=== PATIENT | male | born 1955 | race Caucasian/White ===

== ENCOUNTER 2016-08-03 05:47 | Day surgery (SDC) | payer OTHER ==
[2016-08-03] VITALS (11 sets, daily range): BP systolic 117–153; BP diastolic 73–91; PULSE 64–91; RESP 14–18; O2SAT 93–97
[~2016-08-03] VITALS: Ht 175.3 cm; Wt 89.7 kg
[~2016-08-03 05:47] MED LIST: ALFU10TA11 PO; AMIT10TA6 PO; CHOL200025 PO; FINA5TAB9 PO; FLUT16SP NS; KEN25CR EXT; KRIL500C PO; Lactated Ringer's 1,000 ML IV SCH; OMEP20CA11 PO; SALM1CAP4 PO; SIMV40TA5 PO; TRIA15OI9 TP; UBID100C16 PO
[2016-08-03] MEDS ORDERED: EPHEDrine/NS 5 mg/mL 5 mL Syringe ONE (05:48)
[2016-08-03] MEDS ORDERED: Ondansetron 2 mg/mL 2 mL Inj ONE (05:48)
[2016-08-03] MEDS ORDERED: Propofol 10,000 mCg/mL 20 mL Inj ONE (05:48)
[2016-08-03] MEDS ORDERED: fentaNYL-PF 50 mCg/mL 2 mL Inj ONE (05:48)
[2016-08-03] MEDS: Levofloxacin 500 mg/100 mL D5W IV SCH ×2 (06:00→08:17)
[2016-08-03] MEDS ORDERED: Lactated Ringer's 1,000 ML IV ONE (06:15)
--- NOTE | 2016-08-03 07:06 | PCM.HPANE ---
Patient Data Surgeon Admitting Provider: Attending Provider:Gabe Gillis MD Primary Care Physician:Robert Lopez MD Other Provider:Yen Murilloingham Anesthesia Reason for Visit Benign non-nodular prostatic hyperplasia with lowe Ht/WT & BMI Height (Feet): 5 Height (Inches): 9 Weight (Kilograms): 89.70 Body Mass Index 29.00 Allergies Uncoded Allergies: SEASONAL ENVIRONMENTAL (Allergy, Unknown, ALLERGIC RHINITIS, 08/02/16) Past Anesthesia History Anesthesia History: Denies:: Abnormal Airway, Anesthesia Reactions, Difficult Intubation, Fam Anesthesia Reaction, Fam Malignant Hypertherm, Malignant Hyperthermia Diabetes History Hx Diabetes?: No MRSA MRSA: No Medications Hypertension Medication: No Reported Medications Amitriptyline 10 Mg Zguxsp56 Mg PO HS Ref 0 08/02/16 Triamcinolone Acetonide (Triamcinolone Acetonide Ointment)15 Gm Oint...g.15 Gm TP BID #15 GM Ref 0 0.5% 08/02/16 Alfuzosin ER 10 Mg Tab.er.24h10 Mg PO DAILY 03/10/15 [place] Oil/[place]-3 Fatty Acids ([place] Oil 1,000 mg Softgel)1 Each Capsule2 Each PO DAILY 03/10/15 Triamcinolone Acet (Triamcinolone Acetonide Cream)1 Applic/0.25 Gm Cr1 Applic EXT BID PRN irritation #60 GM Ref 0 03/10/15 Krill Oil 500 Mg Brqifly406 Mg PO DAILY 03/10/15 Cholecalciferol (Vitamin D3) (Vitamin D3)2,000 Unit Tablet5,000 Unit PO DAILY 03/10/15 Omeprazole 20 Mg Capsule.dr20 Mg PO BID Ref 0 03/10/15 Fluticasone Propionate (Fluticasone Propionate Nasal)16 Gm [place].susp1 [place] NS BID PRN allergies #16 GM Ref 0 03/10/15 Finasteride 5 Mg Tablet5 Mg PO DAILY 30 Days Ref 0 03/10/15 Ubidecarenone (Coq-10)100 Mg Xvictks077 Mg PO DAILY 03/10/15 Simvastatin 40 Mg Nuwewz46 Mg PO HS 30 Days Ref 0 03/10/15 Discontinued Reported Medications Gluc 2Kcl/Chondr/Alyssa Hy/Hy AC (Glucosamine & Chondroitin Cap)1 Each Capsule1 Each PO DAILY 03/10/15 Fexofenadine (Susie Allergy)180 Mg Bdyoan730 Mg PO DAILY PRN allergy Ref 0 03/10/15 Naproxen Sodium (Aleve)220 Mg Mfftook624 Mg PO PRN For Pain 03/10/15 History History of ENT Problems?: Yes HEENT History: Positive for:: Sinus Problem (ALLERGIC RHINITIS) Denies:: Abnormal Airway Cataracts (indications, not treated) Difficult Intubation Dysphagia Hearing Problem TMJ Hx of Heart Problems?: Yes Cardiovascular History: Positive for:: Hypertension (hyperlipidemia) Irregular Heartbeat (REPORTED BY PT) Denies:: AICD Abdominal Aortic Aneurism Atrial Fibrillation Cardiac Surgery Chest Pain Congestive Heart Failure Edema Heart Murmur Pacemaker Rheumatic Fever Thrombophlebitis Valvular Heart Disease Other Cardiac History: 07/25/2016 PLATELET COUNT 121 Hx of Respiratory Problem?: Yes Respiratory History: Positive for:: Pneumonia (as child) Denies:: Asthma COPD Emphysema Tuberculosis Use of C-PAP Machine (SNORES) Hx Neurologic Problems?: No Neurological History: Denies:: Alzheimer's Disease CVA Dementia Dizziness Headaches Multiple Sclerosis Parkinson's Disease Seizures Hx of GI Problems?: Yes Gastrointestinal History: Positive for:: Gastroesphageal Reflux Heartburn Denies:: Cirrhosis Diverticulitis Gastrointestinal Bleeding Hepatitis Hiatal Hernia Rectal Bleeding Hx of Problems?: Yes Genitourinary History: Positive for:: Urinary Tract Infection (HX OF) Denies:: Kidney Stones Other Pertinent History: C/OF LUTS Male Hx: Positive for:: Prostate Problems (BPH W/ LUTS=CURRENT PROBLEM) Scrotal Mass (S/P VARICOCELECTOMY) Testicular Surgery (S/P VASECTOMY) Skin History: Denies:: History Skin Disorders? Pressure Ulcers Hx Musculoskeletal Problems?: Yes Musculoskeletal History: Positive for:: Degenerative Joint (S/P LT FOOT CALCANEAL CUBOID ARTHRODESIS) Musculoskeletal Trauma (left foot degenerative joint disease) Osteoarthritis Hx of Psycho/Social Problems?: No Hx Surgeries?: Yes (LT FOOT CALCANEAL CUBOID ARTHRODESIS,VASECTOMY, VARICOCELECTOMY) Hx Any Other Health Problems?: Yes Other History: Denies:: Cancer Endocrine Disease Hospitalization Thyroid Disease History Blood Transfusions: Denies:: Blood Transfusions Hx Diabetes: No Hx Alcohol Use: NoHx Substance Use: No Smoking Status: Never Smoker Have You Smoked inLast 12 mo: No Stop/Bang S-Snoring: Do You Snore Loudly: Yes T-Tired: feel tired, fatigued: No O-Obsered: Observed not breath: No P-Blood Pressure: treated: Yes B- Body Mass Index > 35 kg/m2: No A- Age over 50: Yes N- Neck Large Circumference: No G- Gender Male: Yes IVETH Total Score: 4 Risk Assessment Category Category 1A: Patient has history of documented sleep apnea, and HAS NOT received any narcotic, sedative or anesthesia administration during this stay. Category 1B: Patient has history of documented sleep apnea, and HAS received any narcotic , sedative or anesthesia administration during this stay Category 2: Patient has SUSPECTED Obstructive Sleep Apnea, and HAS received any narcotic , sedative or anesthesia administration during this stay. Category 3: Patient has SUSPECTED Obstructive Sleep Apnea and HAS NOT received narcotic, sedative or anesthesia administration during this stay. Category 4: Outpatient in Procedural Areas with known sleep apnea or who screen positive for High Risk via the STOP/BANG questionnaire. Exam Exam General Appearance: Alert, Oriented X3, Cooperative HEENT/AIRWAY: MP 2, Neck Movement (from), Mouth Opening (wnl) Lungs: Clear to Auscultation Heart: Exam Unremarkable Plan Impression Patient chart reviewed, patient interviewed and anesthestic plan with risks, benefits, and alternatives discussed, and informed consent obtained. NPO Status: 8PM ASA Physical Status: ASA2 Mod Systemic Disease Anesthetic Plan: GA Bene/Risks/Altern/Consents: Yes HP Complete Prior to Induction: Yes Jayson Vail MD Aug 03, 2016 07:06
[2016-08-03] MEDS ORDERED: Lactated Ringer's 1,000 ML IV SCH (08:27)
[2016-08-03] MEDS ORDERED: Belladonna Alk-Opium 60 mg Rectal Suppository RECTAL ONE ×2 (08:27→08:52)
[2016-08-03] MEDS ORDERED: Lactated Ringer's 500 ML IV PRN (08:27)
[2016-08-03] MEDS ORDERED: Atropine 0.4 mg/mL Inj IVPUSH PRN (08:30)
[2016-08-03] MEDS ORDERED: hydrALAZINE 20 mg/mL Inj IVPUSH PRN (08:30)
[2016-08-03] MEDS ORDERED: Labetalol 5 mg/mL 4 mL Inj IV PRN (08:30)
[2016-08-03] MEDS ORDERED: Dexamethasone 4 mg/mL Inj IVPUSH PRN (08:30)
[2016-08-03] MEDS ORDERED: Phenylephrine 10,000 mCg/mL Inj IVPUSH PRN (08:30)
[2016-08-03] MEDS ORDERED: fentaNYL-PF 50 mCg/mL 2 mL Inj IVPUSH PRN (08:30)
[2016-08-03] MEDS ORDERED: HYDROmorphone 1 mg/mL Inj IVPUSH PRN (08:30)
[2016-08-03] MEDS ORDERED: Ondansetron 2 mg/mL 2 mL Inj IVPUSH PRN ×2 (08:30→10:10)
[2016-08-03] MEDS ORDERED: EPHEDrine Sulfate 50 mg/mL Inj IVPUSH PRN (08:30)
--- NOTE | 2016-08-03 09:52 | PCM.ANEP1 ---
Post Anesthesia Phase 1 PACU Phase 1 Assessment Vital Signs Vital Signs Date Time Temp Pulse Resp B/P Pulse Ox O2 Delivery O2 Flow Rate FiO2 08/03/16 07:32 35.7 64 17 153/86 96 Room Air Anesthetic Administered: GA Level of Alertness: Awake, talking DICKERSON's with Equal Strength: Yes Pain: No Nausea or Vomiting: No Oxygen Delivery: Room Air Lungs: Normal Air Movement Jayson Vail MD Aug 03, 2016 09:52
--- NOTE | 2016-08-03 09:53 | PCM.SURGPO ---
Immediate Operative Note Date of Surgery: Aug 03, 2016 Pre Operative Diagnosis BPH, LUTS Post Operative Diagnosis BPH, LUTS Procedure Cystoscopy, transurethral resection of prostate Surgeon and Toy Trains And Accessories Salesperson Surgeon: Gabe Gillis MD Assistants: None Findings Cystoscopy revealed moderate trilobar prostatic hypertrophy with mildly enlarged intravesical median prostatic lobe, mildly trabeculated bladder, and no bladder tumors, lesions, or calculi. TURP was performed using bipolar loop. Complications There were no periprocedural complications identified. Surgical Specimen Removed: Yes Specimen sent to Pathology: Yes Surgical Specimen description: Prostate chips Anesthetic Administered: GA Grafts, Implants: Other (24F 3-way hematuria Durán catheter to CBI (45ml in balloon)) Output, Estimated Blood Loss: 20 Blood Admin during surgery: No Additional information Patient to be observed overnight and likely will be able to be discharged home tomorrow AM (after passing trial of void), to RTC with me in the office in 1 week for post-op visit. Gabe Gillis MD Aug 03, 2016 09:53
[2016-08-03] MEDS ORDERED: diphenhydrAMINE 25 mg Capsule PO PRN (10:10)
[2016-08-03] MEDS ORDERED: Polyethylene Glycol (PEG) 17 Gm Powder PO PRN (10:10)
[2016-08-03] MEDS ORDERED: MetoCLOpramide 5 mg/mL 2 mL Inj IVPUSH PRN (10:10)
[2016-08-03] MEDS ORDERED: Phenazopyridine 97.5 mg Tablet PO PRN (10:10)
[2016-08-03] MEDS: HYDROcodone-APAP 5-325 mg Tablet PO PRN ×2 (11:25→20:54)
[2016-08-03] MEDS ORDERED: Fluticasone 0.05% 15 Spray/2 Gm 16 Gm Nasal Spray NASAL PRN (11:25)
[2016-08-03] MEDS: 0.9% Sodium Chloride 1,000 ML IV SCH (11:26)
--- NOTE | 2016-08-03 12:35 | NUR ---
Pt transferred from PACU to floor at 1040, post cystoscopy with turp. Rec'd report from [facility]. Pt oriented to room and call light by ROOFER APPLICATOR, Pt has 3way jones in place with continuous irrigation. Draining clear slightly yellow fluid. Denises nausea, a/o x4, px reported at 11/25, Arrived via gurney and able to scoot over to hospital bed.
[2016-08-03] MEDS: Pantoprazole 20 mg ER24 Tablet PO SCH (17:21)
[2016-08-04] MEDS: 0.9% Sodium Chloride 1,000 ML IV SCH ×2 (00:11→12:46)
[2016-08-04 00:40] VITALS: BP 112/67; PULSE 60; RESP 16; O2SAT 94
--- NOTE | 2016-08-04 02:36 | OP ---
[address] [address] OPERATIVE REPORT PATIENT: ANAND MONTES : 1955 MR#: [id number] ADMIT: 08/03/2016 JOB ID: [id number] DATE OF SURGERY: 08/03/2016 PREOPERATIVE DIAGNOSIS(ES): Benign prostatic hypertrophy, lower urinary tract symptoms. POSTOPERATIVE DIAGNOSIS(ES): Benign prostatic hypertrophy, lower urinary tract symptoms. PROCEDURE: Cystoscopy, transurethral resection of prostate. SURGEON: Gabe Gillis MD. CARBON COATING MACHINE OPERATOR: None. ANESTHESIA: General. ESTIMATED BLOOD LOSS: 20 mL. SPECIMENS: Prostate chips. DRAINS: A 24-[place] three-way hematuria Durán catheter to continuous bladder irrigation (45 mL in balloon) COMPLICATIONS: None. CONDITION: Stable. FINDINGS: Cystoscopy revealed moderate trilobar prostatic hypertrophy with mildly enlarged intravesical median prostatic lobe, mildly trabeculated bladder and no bladder tumors, lesions or calculi. TURP was performed using bipolar loop electrocautery. INDICATIONS: The patient is a 61-year-old male with BPH, lower urinary tract symptoms, and incomplete bladder emptying, with bothersome lower urinary tract symptoms on maximal medical management with alfuzosin ER 10 mg p.o. daily and Proscar 5 mg p.o. daily. The patient now presents for cystoscopy and bipolar transurethral resection of prostate. DESCRIPTION OF PROCEDURE: The patient was brought to the operating room and placed supine on the operating room table. The patient was given Levaquin IV antibiotics. Sequential compression device boots were placed. General anesthesia was administered. The patient was brought down into dorsal lithotomy position. The patient was prepped and draped in standard sterile surgical fashion. A 26-[place]ian continuous flow resectoscope was placed through the urethra and into the bladder without difficulty. Cystoscopy revealed normal distal urethra , moderate trilobar prostatic hypertrophy with mildly enlarged intravesical median prostatic lobe, bilateral ureteral orifices in normal position, mildly trabeculated bladder, and no bladder tumors, lesions or calculi. Transurethral resection of prostate was performed using bipolar loop electrocautery. Transurethral resection of prostate was performed using Thunderbeat bipolar loop electrocautery to resect prostatic tissue down to prostatic capsule starting on the left lateral lobe, then the right lateral lobe, then the anterior portion of prostate, and then the posterior portion of prostate. Then, the median prostatic lobe was resected and the apical portion of prostate was resected using bipolar loop electrocautery. Prostate chips were evacuated with the aid of the [employer] evacuator, and prostate chips were sent to pathology for permanent specimen. The prostatic fossa was seen to be wide open at the end of the case. Fulguration of the entire prostatic fossa was performed using Thunderbeat bipolar loop electrocautery. Excellent hemostasis was achieved. At the end of the case , no evidence of bladder injury was seen, and bilateral ureteral orifices, verumontanum and external urinary sphincter were seen to be intact and well preserved. Continuous flow resectoscope was removed from the patient. A 24-[place] three-way hematuria Durán catheter was placed through the urethra and into the bladder without difficulty. The Durán catheter balloon was inflated with 45 mL of sterile water. The Durán catheter was irrigated without difficulty. Durán catheter was placed to continuous bladder irrigation. The skin was cleaned and dried. The patient was placed in the supine position. The patient was awakened from general anesthesia and transferred to the recovery room in stable condition. Patient tolerated the procedure well. Plan is for the patient to be observed overnight and the patient likely will be able to be discharged home tomorrow morning after passing trial of void. Plan is for the patient to return to see me in the office in 1 to 1-1/2 weeks for postoperative visit. VERONICA
--- NOTE | 2016-08-04 04:12 | NUR ---
Pain/Output Patient noted to have pale urine output all of shift thus far with irrigation going. Will d/c irrigation @ 0700 per MD orders, if urine continues to remain pale in color. Received one [place] 5/325 PO for c/o pain @ HS. No further c/o or s/sx of breakthrough pain.
[2016-08-04 05:06] VITALS: BP 155/91; PULSE 60; RESP 16; O2SAT 96
--- NOTE | 2016-08-04 06:04 | PCM.DISURG ---
Surgical Discharge Instruction Date of Service Aug 04, 2016 Dates of Hospitalization Date of Hospital Admission Aug 03, 2016 Providers Admitting Physician: Gabe Gillis MD Primary Care Physician: Robert Lopez MD Attending Physician: Gabe Gillis MD Discharge Diagnosis Discharge Diagnosis BPH, LUTS Post Operative diagnosis BPH, LUTS Diet Discharge Diet: Other (Drink at least 10-12 8oz. glasses (3 liters) of fluids as long as there is blood in the urine) Activity Discharge Activity-General: No driving while taking narcotic, Other (No strenuous exercise/activity, moderate or heavy lifting (> 10 lbs.), or straining for 2 weeks) Dressing and Incisional Care Hygiene: May shower Follow Up Plan Follow-up Provider (F9): Gabe Gillis MD Follow-up appointment: Weeks (1 - 1.5 weeks for post-op visit) Call your provider for: Fever, Chills, Increasing abdominal pain, Vomiting, Other (Inability to urinate) Gabe Gillis MD Aug 04, 2016 06:04
[2016-08-04 07:03] LABS: Mean Corpuscular Volume 86.5 fL (81-100)
--- NOTE | 2016-08-04 07:07 | PCM.ANEP2 ---
Post Anesthesia Evaluation ASA/CMS Post Anesthesia VS in Patient's Normal Range?: Yes Resp Stable; Airway Patent?: Yes CV Function & Hydration Stable: Yes Mental Status Recovered?: Yes Pain control Satisfactory?: Yes N/V Control Satisfactory?: Yes Jayson Vail MD Aug 04, 2016 07:07
[2016-08-04] MEDS: Pantoprazole 20 mg ER24 Tablet PO SCH (08:21)
--- NOTE | 2016-08-04 08:50 | PCM.PNSURG ---
Subjective Date of Service: Aug 04, 2016 Date of Service: Aug 04, 2016 Visit Information: Reason for Visit Benign non-nodular prostatic hyperplasia with lowe Surgery/Surgery Date Post-Op Day # 1 Date of Admission: Hospital Day # 2 Subjective: No acute events. He states he has no pain. Tolerating regular diet. Postop General: No Complaints Gastrointestinal: Good Appetite Pain Management: PO Postop Activity: Ambulating Independently Objective Vital Sign- Last 8 Hours Date Time Temp Pulse Resp B/P Pulse Ox O2 Delivery O2 Flow Rate FiO2 08/04/16 05:06 36.3 60 16 155/91 96 Room Air Intake and Output- Last 8 Hour 08/04/16 Cumulative From/Thru 07:00 08/02/16 14:07 - 08/04/16 06:30 Intake Total 2169 ml 4146 ml Output Total 2050 ml 5120 ml Balance 119 ml -974 ml Intake Oral 800 ml 1677 ml IV Total 1369 ml 2469 ml Output Urine Total 2050 ml 5100 ml Estimated Blood Loss 20 ml # Bowel Movements 0 0 General: Alert Catheters: 3 Way Irrigation (CBI is off. Urine in tubing and back is light yellow.) Result Diagram: 08/04/16 0630 08/04/16 0630 Assessment & Plan Impression POD# 1 Problems: Plan Remove jones now. Voiding trial. DC planning today. Jerrica Roberts MD Aug 04, 2016 08:50
--- NOTE | 2016-08-04 08:52 | PCM.DC.SUR ---
Discharge Summary Date of Service: Aug 04, 2016 Date of Hospital Admission: Date of Operation(s): 08/03/16 Date of Discharge: 08/04/16 Diagnosis at Time of Discharge LUTS Problems: Operation TURP Brief History and Physical: Mr Liu underwent TURP 08/03/16, tolerated well. POD#1 DC home. Pathology: Pending Disposition: Home Follow-up Plan: As directed with Dr Gillis Alfuzosin ER (Alfuzosin ER) 10 Mg Tab.er.24h 10 MG PO DAILY (Reported) Amitriptyline (Amitriptyline) 10 Mg Tablet 10 MG PO HS (Reported) Cholecalciferol (Vitamin D3) (Vitamin D3) 2,000 Unit Tablet 5,000 UNIT PO DAILY (Reported) Finasteride (Finasteride) 5 Mg Tablet 5 MG PO DAILY (Reported) Fluticasone Propionate (Fluticasone Propionate Nasal) 16 Gm [place].susp 1 SPRAY NS BID PRN PRN allergies (Reported) Krill Oil (Krill Oil) 500 Mg Capsule 500 MG PO DAILY (Reported) Omeprazole (Omeprazole) 20 Mg Capsule.dr 20 MG PO BID (Reported) [place] Oil/[place]-3 Fatty Acids ([place] Oil 1,000 mg Softgel) 1 Each Capsule 2 EACH PO DAILY (Reported) Simvastatin (Simvastatin) 40 Mg Tablet 40 MG PO HS (Reported) Triamcinolone Acet (Triamcinolone Acetonide Cream) 1 Applic/0.25 Gm Cr 1 APPLIC EXT BID PRN PRN irritation (Reported) Triamcinolone Acetonide (Triamcinolone Acetonide Ointment) 15 Gm Oint...g. 15 GM TP BID (Reported) 0.5% Ubidecarenone (Coq-10) 100 Mg Capsule 100 MG PO DAILY (Reported) Jerrica Roberts MD Aug 04, 2016 08:51
--- NOTE | 2016-08-04 13:46 | PATH ---
SURGICAL PATHOLOGY Attending Physician:Gabe Gillis MD CASE STATUS: Signed Out PATIENT NAME: ANAND MONTES PID: [id number] : 1955 DATE COLLECTED:08/03/2016 15:35 SPECIMEN: Prostate, Chips CLINICAL HISTORY: PROSTATE CHIPS FINAL DIAGNOSIS: 1.PROSTATE CHIPS (TRANSURETHRAL RESECTION, 3.4 GRAMS): NODULAR HYPERPLASIA OF GLANDS AND STROMA, NEGATIVE FOR ATYPIA AND MALIGNANCY. ICD10 CODE N40.1 GROSS DESCRIPTION: The specimen is received in one formalin filled container labeled with the patient's name, sublabeled "prostate chips" and consists of multiple white to vitla-arias to pink arias portions of tissue which aggregate to 4.5 x 3.0 x 1.0 CM. The specimen weighs 3.4 g in total. The specimen is entirely submitted in 4 cassettes. 08/03/2016 DAC MICRO DESCRIPTION: See diagnosis. ICD-9 CODES: CPT CODES: 1: 18818 Electronically Signed Out Lb Zacarias MD [facility] Pathology [facility] [address], [place] [address] Technical component performed at [facility], [address] [place] [address] Ave[address], [place], [address]
--- NOTE | 2016-08-04 14:16 | NUR ---
Discharge Orders for discharge were received. Orders in chart stated that after first void patient be bladder scanned with a goal of less than 150 ml in bladder. After 150 ml void patient found to have 220 ml in bladder. With second void patient voided 600 ml of urine, with 303 residual in bladder. Patient denied any discomfort, urine clear but slightly pink tinged. MD called with urine voided amounts and residual amounts, decided that patient was allowable to discharge. The patient was given information regarding his diagnosis and treatment, signs and symptoms to be aware of, follow up instructions, his scripts and information on his new medications as well as a list of which home medications to continue. The patient signified understanding of this information and his asymptomatic IV was removed intact. The patient was then dressed in his own clothing and his belongings were gathered. The patient then ambulated to the main entrance with staff. At the time of discharge the patient was alert and oriented, urinating with out difficulty or pain with urine slightly pink tinged. Patient continued to deny nausea or any pain requiring medication.
== END 2016-08-04 13:20 | disposition home or self-care (01) ==
LOC: SAS 05:47 → OSC 10:48 → SAS 08-04 13:20
PROVIDERS: ATTEND Urology
DX: N40.1 Benign prostatic hyperplasia with lower urinary tract symptoms (principal); R33.9 Retention of urine, unspecified; N39.43 Post-void dribbling; N32.81 Overactive bladder; R39.198 Other difficulties with micturition; Z80.42 Family history of malignant neoplasm of prostate; E78.5 Hyperlipidemia, unspecified; K21.9 Gastro-esophageal reflux disease without esophagitis
CPT/HCPCS: 36415; 52601; 80048; 85027; J2405; J3010; J7030; J7120